=== PATIENT | male | born 1945 | race Caucasian/White ===

== ENCOUNTER → 2018-10-28 10:42 | Outpatient (CLI) | payer OTHER, SELFPAY | PROVIDERS: PCP Physician Assistant Medical; Visit Provider Family Medicine | DX: I89.0 Lymphedema, not elsewhere classified (principal) | CPT/HCPCS: 99203; 99212 ==

== ENCOUNTER → 2020-05-30 14:07 | Outpatient (CLI) | payer OTHER, SELFPAY ==
[2020-05-30 21:58] LABS: COVID19 -Nasal RAPID Negative (Negative)
== END ==
PROVIDERS: PCP Physician Assistant Medical; Visit Provider Physician Assistant
DX: Z01.812 Encounter for preprocedural laboratory examination (principal)
CPT/HCPCS: 87635

== ENCOUNTER → 2020-06-02 13:56 | Outpatient (CLI) | payer OTHER, SELFPAY ==
--- NOTE | 2020-06-02 | DI.ECHO.S_ITS ---
[facility] +---------+ : : [address] : [address] : : : : [id number] : : : : Phone: [phone] : : [phone] +---------+ Echocardiogram Report + + :Name: NIKITA BIRMINGHAM Study Date: 06/02/2020 Height: 67 in : :[facility] Weight: 326 lb : : Gender: Male BSA: 2.5 m2 : :: 1945 Age: 75 yrs BP: 110/60 mmHg: :Reason For Study: AFIB : : Performed By: Lalito Navarrete : :Referring: [email or web address] : + + Interpretation Summary This ecocardiogram was technically limited due to the patient's body habitus and positioning. The left ventricular ejection fraction is grossly normal. Regional wall motion abnormalities cannot be excluded due to limited visualization. No significant valvular abnormality noted on this suboptimal study Procedure: A two-dimensional transthoracic echocardiogram with color flow and Doppler was performed. This ecocardiogram was technically limited due to the patient's body habitus and positioning. Comparison is made with the echocardiogram of 05/17/13. The apical views were not obtained due to poor acoustic window. The suprasternal notch views were difficult to obtain and are suboptimal in quality. The patient was in normal sinus rhythm during the exam. Left Ventricle: The left ventricle is grossly normal with grossly normal ejection fraction. The left ventricular ejection fraction is grossly normal. The ejection fraction is estimated to be 55-60%. Regional wall motion abnormalities cannot be excluded due to limited visualization. Right Ventricle: The right ventricle is not well visualized. Atria: The left atrium is not well visualized. Right atrium not well visualized. Mitral Valve: The mitral valve is grossly normal. Aortic Valve: The aortic valve is not well visualized. Tricuspid Valve: The tricuspid valve is not well visualized. Pulmonic Valve: The pulmonic valve is not well visualized. Great Vessels: The aortic root is normal size. The ascending aorta is normal in size. The inferior vena cava was not well visualized. MMode/2D Measurements & Calculations LVIDd: 6.3 cm LVOT diam: 2.4 cm LVIDs: 4.1 cm Ao root diam: 3.5 cm FS: 35.7 % asc Aorta Diam: 3.0 cm IVSd: 0.82 cm LVPWd: 0.93 cm LV spicer. diameter/BSA (cm/m^2): 2.5 LV sys. diameter/BSA (cm/m^2): 1.6 Doppler Measurements & Calculations PA V2 max: 88.8 cm/sec PA V2 mean: 66.0 cm/sec PA mean P.9 mmHg PA pr(Accel): 37.9 mmHg Reading Physician:11:19 AM
== END ==
LOC: NUCM 14:04
PROVIDERS: PCP Nurse Practitioner; Referring Provider Nurse Practitioner; Visit Provider Nurse Practitioner
DX: I48.0 Paroxysmal atrial fibrillation (principal); I34.0 Nonrheumatic mitral (valve) insufficiency; R06.02 Shortness of breath; I25.10 Atherosclerotic heart disease of native coronary artery without angina pectoris; I10 Essential (primary) hypertension; E78.5 Hyperlipidemia, unspecified
CPT/HCPCS: 93306

== ENCOUNTER → 2021-12-14 14:28 | Outpatient (CLI) | payer OTHER, SELFPAY ==
--- NOTE | 2021-12-14 14:31 | DI.ECHO.S_ITS ---
[facility] +---------+ : : [address] : : : : [id number] : : : : Phone: [phone] : : [phone] +---------+ Echocardiogram Report + + :Name: NIKITA BIRMINGHAM Study Date: 12/14/2021 Height: 67 in : :[facility] : Weight: 325 lb : : Gender: Male BSA: 2.5 m2 : :: 1945 Age: 76 yrs BP: 164/88 mmHg: :Reason For Study: Atrial fibrillation : :Ordering Physician: Quinn : :Radha Aguilera Performed By: Bianca Peoples : :Referring: QUINN AGUILERA : + + Interpretation Summary Patient refused the use of Definity due to being a very hard stick, patient states last time he needed an IV he was stuck 20 times. 1) Mildly enlarged left ventricle with grossly normal systolic function (EF 55-60%). 2) Regional wall motion abnormalities cannot be excluded due to limited visualization. 3) Mildly enlarged right ventricle with grossly normal function. 4) There is mild to moderate mitral regurgitation. 5) Compared to the Echo done 06/02/2020, no significant change. Procedure: A two-dimensional transthoracic echocardiogram with color flow and Doppler was performed. The study quality was technically limited. The study quality was technically difficult. Comparison is made with the echocardiogram of 11/22/2020. The heart rate ranged between 72-90 bpm during the study. Left Ventricle: The left ventricle is mildly dilated. There is mild concentric left ventricular hypertrophy. Ejection fraction appears grossly normal from parasternal views with an EF of 55-60%, however there is limited visualization in apical window. Regional wall motion abnormalities cannot be excluded due to limited visualization. Right Ventricle: The right ventricle is mildly dilated. The right ventricular systolic function is normal. Atria: The left atrium is mildly dilated. Right atrial size is normal. There is no Doppler evidence for an interatrial shunt. Mitral Valve: The mitral valve leaflets appear mildly thickened, but open well. There is mild to moderate mitral regurgitation. Aortic Valve: The aortic valve is mildly calcified. There is mild aortic valve sclerosis. There is no aortic valve stenosis. No aortic regurgitation is present. Tricuspid Valve: The tricuspid valve is not well visualized. There is a trace or physiologic amount of tricuspid regurgitation. Pulmonary artery pressures cannot be estimated because of the lack of a measurable TR jet velocity. Pulmonic Valve: The pulmonic valve is not well visualized. Great Vessels: The aortic root is normal size. The dimensions of the ascending aorta are normal. The IVC is of normal diameter and collapses greater than 50% with a sniff. This suggests a low right atrial pressure of 3 mm Hg. Pericardium/ Pleura There is no pericardial effusion. There is no pleural effusion. MMode/2D Measurements & Calculations LVIDd: 6.1 cm LVOT diam: 2.5 cm LVIDs: 3.8 cm Ao root diam: 3.4 cm FS: 37.2 % asc Aorta Diam: 3.5 cm IVSd: 1.1 cm Ao Arch Diam (Prox Trans): 3.4 cm LVPWd: 1.2 cm LV spicer. diameter/BSA (cm/m^2): 2.5 LV sys. diameter/BSA (cm/m^2): 1.5 LA A2 area: 27.1 cm2 RA long axis: 6.1 cm LA A4 area: 29.7 cm2 RA area: 22.0 cm2 LA length (vol): 6.5 cm RA vol: 67.1 ml LA vol: 104.5 ml RA : 27.0 ml/m2 LA vol index: 42.0 ml/m2 IVC diam: 1.4 cm RVD1 (basal): 4.4 cm RVD2 (mid): 4.5 cm TAPSE: 2.1 cm Doppler Measurements & Calculations Ao V2 max: 190.1 cm/sec LVOT Max Sunil: 93.1 cm/sec Ao V2 mean: 127.4 cm/sec LV V1 max P.5 mmHg Ao max P.5 mmHg LV V1 VTI: 18.8 cm Ao mean P.6 mmHg EPI(I,D): 2.3 cm2 Ao V2 VTI: 39.2 cm EPI(V,D): 2.3 cm2 sev ratio: 0.48 EPI indexed to BSA (cm^2/m^2): 0.91 MV E max sunil: 101.3 cm/sec PA V2 max: 124.4 cm/sec MV A max sunil: 79.2 cm/sec PA V2 mean: 83.4 cm/sec MV E/A: 1.3 PA mean P.1 mmHg Med Peak E' Sunil: 8.5 cm/sec E/E' med: 11.9 Lat Peak E' Sunil: 9.9 cm/sec E/E' lat: 10.2 E/e' average: 11.1 MV dec time: 0.28 sec SV(LVOT): 89.1 ml Reading Physician:01:35 PM
== END ==
PROVIDERS: PCP Internal Medicine; Referring Provider Internal Medicine Cardiovascular Disease; Visit Provider Internal Medicine Cardiovascular Disease
DX: I48.0 Paroxysmal atrial fibrillation (principal); R06.02 Shortness of breath; I08.0 Rheumatic disorders of both mitral and aortic valves
CPT/HCPCS: 93306